=== PATIENT | female | born 1980 | race Two or more races ===

== ENCOUNTER 2021-06-10 04:24 | Emergency (ER) | payer SELFPAY ==
[~2021-06-10] VITALS: Ht 167.6 cm; Wt 81.6 kg
[2021-06-10 04:30] VITALS: BP 155/87
[2021-06-10] MEDS ORDERED: IBUP-1957 PO (04:42)
--- NOTE | 2021-06-10 04:45 | NUR ---
Patient discharged to home in stable condition. Written and verbal after care instructions given. Patient verbalizes understanding of instruction. rx given
== END 2021-06-10 04:46 | disposition home or self-care (01) ==
LOC: ER 04:26
DX: R25.2 Cramp and spasm (principal); M79.605 Pain in left leg; Z59.00 Homelessness unspecified